=== PATIENT | female | born 1960 | race Caucasian/White ===

== ENCOUNTER → 2018-05-14 | Outpatient (CLI) | payer OTHER ==
[~2018-05-14] MED LIST: BYSTOLIC2.5 MG OR; GLUCOSAMINE1000 MG PO; LIVALO1 MG OR; PRILOSEC 20 MG20 MG OR
== END ==
LOC: CAT 08:08
DX: Z13.6 Encounter for screening for cardiovascular disorders (principal); E78.00 Pure hypercholesterolemia, unspecified; I25.10 Atherosclerotic heart disease of native coronary artery without angina pectoris